=== PATIENT | male | born 2005 | race Caucasian/White ===

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

== ENCOUNTER 2023-08-12 10:03 | Emergency (ER) | payer SELFPAY ==
[2023-08-12] MEDS ORDERED: Alum Hydro/Mag Hydro/Simeth XS 15 ML, Metoclopramide 5 MG, Lidocaine 2% 5 ML PO ONE ×3 (10:38)
== END 2023-08-12 10:56 | disposition home or self-care (01) ==
LOC: MW.ED 10:03
DX: K21.9 Gastro-esophageal reflux disease without esophagitis (principal); Z76.0 Encounter for issue of repeat prescription; Z88.0 Allergy status to penicillin
CPT/HCPCS: 99283; A9270

== ENCOUNTER 2024-01-30 18:52 | Emergency (ER) | payer BC ==
[2024-01-30] MEDS: Lidocaine 1% 5 ML VIAL INJECT ONE (19:34)
== END 2024-01-30 20:04 | disposition home or self-care (01) ==
LOC: MW.ED 18:52
DX: S61.412A Laceration without foreign body of left hand, initial encounter (principal); Z88.0 Allergy status to penicillin; Z75.8 Other problems related to medical facilities and other health care; W26.0XXA Contact with knife, initial encounter
CPT/HCPCS: 12001; 99282; J3490

== ENCOUNTER 2024-02-09 09:34 | Emergency (ER) | payer BC | END 2024-02-09 10:07 | disposition left against medical advice (07) | LOC: MW.ED 09:34 | DX: S61.412D Laceration without foreign body of left hand, subsequent encounter (principal); X58.XXXD Exposure to other specified factors, subsequent encounter | CPT/HCPCS: 99281 ==